=== PATIENT | female | born 1980 | race Caucasian/White ===

== ENCOUNTER 2017-04-01 22:23 | Emergency (ER) | payer SELFPAY ==
[~2017-04-01] VITALS: Ht 170.2 cm; Wt 68.0 kg
[2017-04-02 00:27] VITALS: BP 133/75
== END 2017-04-02 00:27 | disposition home or self-care (01) ==
LOC: ED 22:23
DX: S69.92XA Unspecified injury of left wrist, hand and finger(s), initial encounter (principal); W20.8XXA Other cause of strike by thrown, projected or falling object, initial encounter; Y93.89 Activity, other specified; Y92.89 Other specified places as the place of occurrence of the external cause; Y99.8 Other external cause status
CPT/HCPCS: Q0162